=== PATIENT | female | born 1975 | race Caucasian/White ===

== ENCOUNTER 2016-09-01 00:12 | Emergency (ER) | payer OTHER ==
[2016-09-01 00:21] VITALS: BP 126/76; BMI 27.8
--- NOTE | 2016-09-01 01:29 | DR.GENAD ---
HPI - PCP Primary Care Physician: Arlin - HPI Comment HPI Comment: SUDDEN ONSET OF RUQ ABDOMINAL PAIN RADIATING TO RIGHT FLANK WITH NAUSE NOTED TODAY. GETTING WORSE. NO FEVER OR HEMATURIA OR DYSURIA. - Complaint/Symptoms Chief Complaint Doctors Comments: RUQ ABDOMINAL PAIN, RT FLANK PAIN Chief Complaint:: "I'm having upper right quadrant pain that is radiating to my back." - Nurses notes reviewed Nurses Notes Review: Yes - Source History Provided: Patient - Mode of Arrival Mode of Arrival: Wheelchair - Timing Onset of Chief Complaint: 09/01/16 Came on: Suddenly - Duration Duration: Constant Duration: Hours - Severity Severity: Moderate PMH - PMH Past Medical History: Yes Past Medical History: Anxiety, Migraines Past Medical History Comment: Hypotension Past Surgical History: Yes Surgical History: Hysterectomy, Other Past Surgical History Comment: Eye surgury, Spinal tap - Family History History of Family Medical Conditions: Yes Family Medical History: Diabetes Mellitus, Cancer, Hypertension - Social History Does patient currently use any type of tobacco product: No Have you used tobacco products in the last 12 months: No Type of Tobacco Use: None Does any household member use tobacco: No Alcohol Use: None Do you use any recreational Drugs:: No Lives With: Family Lives Where: Home - infectious screening In the last 2 months have you had wt loss of >10#?: NO Have you had fever, night sweats or hemotysis?: No Have you traveled outside the country in the last 6 months?: No Isolation: Standard ROS - Review of Systems Constitutional: No Symptoms Reported Eyes: No Symptoms Reported ENTM: No Symptoms Reported Respiratoy: No Symptoms Reported Cardiovascular: No Symptoms Reported Gastrointestinal/Abdominal: Abdominal Pain, Nausea Genitourinary: No Symptoms Reported. negative: Dysuria, Frequency, Hematuria Neurological: No Symptoms Reported Musculoskeletal: No Symptoms Reported, Muscle Pain Integumentary: No Symptoms Reported Hematologic/Lymphatic: No Symptoms Reported Endocrine: No Symptoms Reported All Other Systems: Reviewed and Negative PE - Vital Signs Vitals: Temperature 98.5 F Pulse Rate 84 Respiratory Rate 18 Blood Pressure 126/76 O2 Sat by Pulse Oximetry 98 - General Limitations: No Limitations General Appearance: Alert - Head Head Exam: Normal Inspection - Eyes Eye exam: Normal Appearance - ENT ENT Exam: Normal External Ear Exam External Ear Exam: Normal External Inspection TM/Canal Exam: Bilateral Normal Nose Exam: Normal Nose Exam Mouth Exam: Normal Inspection Throat Exam: Normal Inspection - Neck Neck Exam: Normal Inspection - Chest Chest Inspection: Symmetric Chest Wall Rise - Respiratory Respiratory Exam: Normal Lung Sounds Bilat Respiratory Exam: Bilateral Clear to Auscultation - Cardiovascular Cardiovascular Exam: Regular Rate, Normal Rhythm, Normal Heart Sounds - Abdominal Exam Abdominal Exam: Normal Bowel Sounds, Soft, Tenderness Abdominal Tenderness: RUQ, Other (RT FLANK) - Extremities Extremities Exam: Normal Inspection - Back Back Exam: (R) CVA Tenderness - Neurologic Neurological Exam: Alert, Oriented X3 - Psychiatric Psychiatric Exam: Normal Affect, Normal Mood - Skin Skin Exam: Normal Color MDM - Differential Diagnosis Differential Diagnosis: UTI, KIDNEY STONE, PYELONEPHRITIS, CHOLECYSTITIS, CHOLELITHIASIS Course - Treatment Treatment: SEE ORDERS. MEDS IN ED PER ORDERS. PAIN IMPROVED. - Reevaluation 1st: Improved - Education/Counseling Education/Counseling: Patient, Education Educated On: Treatment, Diagnosis, Needs for Follow Up ROR - Labs Reviewed Laboratory Results Reviewed?: Yes Result Diagrams: 09/01/16 01:40 09/01/16 01:40 Laboratory: WBC 10.9 X10^3/uL (3.6-10.0) H 09/01/16 01:40 RBC 4.82 X10^6/uL (3.5-5.4) 09/01/16 01:40 Hgb 14.4 g/dL (12.0-16.0) 09/01/16 01:40 Hct 41.9 % (36.0-47.0) 09/01/16 01:40 MCV 86.9 fL (80.0-100.0) 09/01/16 01:40 MCH 29.9 pg (27.0-34.0) 09/01/16 01:40 MCHC 34.4 g/dL (33.0-35.0) 09/01/16 01:40 RDW 14.4 % (11.6-16.5) 09/01/16 01:40 Plt Count 239 X10^3/uL (150.0-450.0) 09/01/16 01:40 MPV 8.2 fL (7.4-11.0) 09/01/16 01:40 Neut % 68.7 % (42.0-75.0) 09/01/16 01:40 Lymph % 22.0 % (21.0-51.0) 09/01/16 01:40 [place] % 8.2 % (0.0-13.0) 09/01/16 01:40 Eos % 0.6 % (0.9-2.9) L 09/01/16 01:40 Baso % 0.5 % (0.2-1.0) 09/01/16 01:40 Neut # 7.5 x10^3/uL (2.2-4.8) H 09/01/16 01:40 Lymph # 2.4 X10^3/uL (1.3-2.9) 09/01/16 01:40 [place] # 0.9 x10^3/uL (0.3-0.8) H 09/01/16 01:40 Eos # 0.1 x10^3/uL (0.0-0.2) 09/01/16 01:40 Baso # 0.1 X10^3/uL (0.0-0.1) 09/01/16 01:40 Absolute Nucleated RBC 0.0 /100WBC 09/01/16 01:40 Sodium 146 mmol/L (136-145) H 09/01/16 01:40 Corrected Sodium TNP 09/01/16 01:40 Potassium 3.6 mmol/L (3.5-5.1) 09/01/16 01:40 Chloride 108 mmol/L (98-107) H 09/01/16 01:40 Carbon Dioxide 29.1 mmol/L (21-32) 09/01/16 01:40 BUN 11 mg/dL (7-18) 09/01/16 01:40 Creatinine 0.81 mg/dL (0.55-1.02) 09/01/16 01:40 Est GFR (MDRD) Af Amer > 60 (>60) 09/01/16 01:40 Est GFR (MDRD) Non-Af > 60 (>60) 09/01/16 01:40 Glucose 109 mg/dL (65-99) H 09/01/16 01:40 Calcium 8.8 mg/dL (8.5-10.1) 09/01/16 01:40 Corrected Calcium TNP 09/01/16 01:40 Total Bilirubin 0.40 mg/dL (0.2-1.0) 09/01/16 01:40 AST 53 Units/L (15-37) H 09/01/16 01:40 ALT 36 Units/L (12-78) 09/01/16 01:40 Alkaline Phosphatase 147 Units/L (46-116) H 09/01/16 01:40 Total Protein 7.2 g/dL (6.4-8.2) 09/01/16 01:40 Albumin 3.6 g/dL (3.4-5.0) 09/01/16 01:40 Globulin 3.6 g/dL (2.5-4.5) 09/01/16 01:40 Albumin/Globulin Ratio 1.0 Ratio (1.1-2.1) L 09/01/16 01:40 Amylase 53 Units/L (25-115) 09/01/16 01:40 Lipase 177 Units/L (73-393) 09/01/16 01:40 Specimen Type Clean catch urine 09/01/16 01:50 Urine Color Yellow (YELLOW) 09/01/16 01:50 Urine Appearance Cloudy (CLEAR) 09/01/16 01:50 Urine pH 8.0 (5.0 - 8.0) 09/01/16 01:50 Ur Specific [place] 1.020 (1.000-1.030) 09/01/16 01:50 Urine Protein 2+ (NEGATIVE) 09/01/16 01:50 Urine Glucose (UA) Negative (NEGATIVE) 09/01/16 01:50 Urine Ketones Negative (NEGATIVE) 09/01/16 01:50 Urine Occult Blood 2+ (NEGATIVE) 09/01/16 01:50 Urine Nitrite Negative (NEGATIVE) 09/01/16 01:50 Urine Bilirubin Negative (NEGATIVE) 09/01/16 01:50 Urine Urobilinogen 1+ (NORMAL) 09/01/16 01:50 Ur Leukocyte Esterase 3+ (NEGATIVE) 09/01/16 01:50 Urine RBC 0-3 /HPF (NEGATIVE) 09/01/16 01:50 Urine WBC 15-20 /HPF (NEGATIVE) 09/01/16 01:50 Ur Squamous Epith Cells Few /HPF (NEGATIVE) 09/01/16 01:50 Urine Bacteria 1+ /HPF (NEGATIVE) 09/01/16 01:50 Ur Culture Indicated? Yes/culture set up 09/01/16 01:50 - Diagnosis Discharge Problem: UTI (urinary tract infection) Qualifiers: Urinary tract infection type: acute pyelonephritis Qualified Code(s): N10 - Acute pyelonephritis Abdominal pain Qualifiers: Abdominal location: lower abdomen, unspecified Qualified Code(s): R10.30 - Lower abdominal pain, unspecified - Discharge Plan Disposition: HOME, SELF-CARE Condition: Stable Prescriptions: Ondansetron HCl [Zofran Tab 4 mg] 4 mg PO Q8H PRN #12 tab PRN Reason: Nausea/Vomiting Sulfamethoxazole-Trimethoprim [BACTRIM DS TAB 800/160 MG *] 1 tab PO BID #20 tab - Follow ups/Referrals Follow ups/Referrals: DAIN PRESLEY [Primary Care Provider] - 2 days - Instructions Instructions: Urinary Tract Infection, [id number], Abdominal Pain, Adult, [id number] Additional Instructions: RETURN TO ED IF WORSE.
[2016-09-01] MEDS ORDERED: TORADOL 60 MG VIAL IM ONE (01:30)
[2016-09-01] MEDS ORDERED: ZOFRAN INJ 4 MG VIAL IVP ONE (01:31)
[2016-09-01] MEDS ORDERED: ZOFRAN INJ 4 MG VIAL IM ONE (01:42)
[2016-09-01] MEDS ORDERED: TORADOL 60 MG VIAL ONE (01:44)
[2016-09-01] MEDS ORDERED: ZOFRAN INJ 4 MG VIAL ONE (01:44)
[2016-09-01 01:46] LABS: BASOPHILS # (AUTO) 0.1 X10^3/uL (0.0-0.1); BASOPHILS % (AUTO) 0.5 % (0.2-1.0); EOSINOPHILS # (AUTO) 0.1 x10^3/uL (0.0-0.2); EOSINOPHILS % (AUTO) 0.6 % (0.9-2.9); HEMATOCRIT 41.9 % (36.0-47.0); HEMOGLOBIN 14.4 g/dL (12.0-16.0); LYMPHOCYTES # (AUTO) 2.4 X10^3/uL (1.3-2.9); MEAN CORPUSCULAR HEMOGLOBIN 29.9 pg (27.0-34.0); MEAN CORPUSCULAR HGB CONC 34.4 g/dL (33.0-35.0); MEAN CORPUSCULAR VOLUME 86.9 fL (80.0-100.0); MEAN PLATELET VOLUME 8.2 fL (7.4-11.0); MONOCYTES # (AUTO) 0.9 x10^3/uL (0.3-0.8); MONOCYTES % (AUTO) 8.2 % (0.0-13.0); NEUTROPHILS # (AUTO) 7.5 x10^3/uL (2.2-4.8); NEUTROPHILS % (AUTO) 68.7 % (42.0-75.0); PLATELET COUNT 239 X10^3/uL (150.0-450.0); RED BLOOD COUNT 4.82 X10^6/uL (3.5-5.4); RED CELL DISTRIBUTION WIDTH 14.4 % (11.6-16.5); WHITE BLOOD COUNT 10.9 X10^3/uL (3.6-10.0)
[2016-09-01 01:55] LABS: BILIRUBIN,URINE NEGATIVE (NEGATIVE); BLOOD/HEMOGLOBIN,URINE 2+ (NEGATIVE); GLUCOSE, URINE NEGATIVE (NEGATIVE); KETONES,URINE NEGATIVE (NEGATIVE); LEUKOCYTE ESTERASE ,URINE 3+ (NEGATIVE); NITRITES,URINE NEGATIVE (NEGATIVE); PROTEIN,URINE 2+ (NEGATIVE); UROBILINOGEN,URINE 1+ (NORMAL)
[2016-09-01 01:57] LABS: APPEARANCE,URINE CLOUDY (CLEAR); COLOR,URINE YELLOW (YELLOW)
[2016-09-01 02:00] LABS: BACTERIA,URINE 1+ /HPF (NEGATIVE); RBC,URINE 0-3 /HPF (NEGATIVE); SQUAMOUS EPITHELIAL CELL,UR FEW /HPF (NEGATIVE)
[2016-09-01 02:00] LABS: ALANINE AMINOTRANSFERASE 36 Units/L (12-78); ALBUMIN 3.6 g/dL (3.4-5.0); ALKALINE PHOSPHATASE 147 Units/L (46-116); AMYLASE 53 Units/L (25-115); ASPARTATE AMINO TRANSFERASE 53 Units/L (15-37); BLOOD UREA NITROGEN 11 mg/dL (7-18); CALCIUM 8.8 mg/dL (8.5-10.1); CARBON DIOXIDE 29.1 mmol/L (21-32); CHLORIDE 108 mmol/L (98-107); CREATININE 0.81 mg/dL (0.55-1.02); GLUCOSE 109 mg/dL (65-99); LIPASE 177 Units/L (73-393); SODIUM 146 mmol/L (136-145); TOTAL PROTEIN 7.2 g/dL (6.4-8.2); eGFR BLACK RACES > 60 (>60); eGFR NON BLACK RACES > 60 (>60)
[2016-09-01] MEDS ORDERED: BACTRIM DS TAB PO ONE ×2 (02:47→03:16)
== END 2016-09-01 03:40 | disposition home or self-care (01) ==
LOC: ER 00:12
DX: N10 Acute pyelonephritis (principal); R10.11 Right upper quadrant pain
CPT/HCPCS: 36415; 80053; 81001; 82150; 83690; 85025; 87086; 96372; 99283; J1885; J2405